=== PATIENT | male | born 1940 | race Hispanic/Latino ===

== ENCOUNTER 2017-12-12 14:36 | Emergency (ER) | payer MEDICARE ==
[2017-12-12] MEDS ORDERED: Sodium Chloride 0.9% 1,000 ML IV ONE (15:23)
--- NOTE | 2017-12-12 15:35 | C.PDOC ---
History Of Present Illness 77 y/o male brought to ED by EMS for evaluation of fever since last night and weakness since today. As per at bedside patient became weak and fell on side walk. states she gave patient Tylenol for fever with improvement and checked blood pressure which was low. Patient admits to decreased appetite and denies cough, nausea, vomiting, leg swelling, loc, head injury or any complaints at this time. Time Seen by Provider: 12/12/17 14:44 Chief Complaint (Nursing): Weakness/Neurological Deficit History Per: Patient History/Exam Limitations: no limitations Onset/Duration Of Symptoms: Days Current Symptoms Are (Timing): Still Present Past Medical History Reviewed: Historical Data, Nursing Documentation, Vital Signs Vital Signs: Last Vital Signs Temp 97.4 F L 12/12/17 14:51 Pulse 99 H 12/12/17 16:47 Resp 19 12/12/17 16:47 BP 90/53 L 12/12/17 16:47 Pulse Ox 95 12/12/17 18:20 - Medical History PMH: No Chronic Diseases Surgical History: No Surg Hx Family History: States: No Known Family Hx - Social History Hx Alcohol Use: No Hx Substance Use: No - Immunization History Hx Tetanus Toxoid Vaccination: No Hx Influenza Vaccination: No Hx Pneumococcal Vaccination: No Review Of Systems Constitutional: Positive for: Fever, Weakness. Negative for: Chills Cardiovascular: Negative for: Chest Pain Respiratory: Negative for: Cough, Shortness of Breath Gastrointestinal: Negative for: Nausea, Vomiting Skin: Positive for: Bruising. Negative for: Rash Physical Exam - Physical Exam Appears: Non-toxic, No Acute Distress, Chronically Ill, Other (thin appearing) Skin: Warm, Dry, No Rash, Ecchymosis (to left knee), Other (abrasion to bilateral knees) Head: Atraumatic, Normacephalic Eye(s): bilateral: Normal Inspection Nose: Normal Oral Mucosa: Dry Neck: Normal ROM, Supple Chest: Symmetrical, No Tenderness Cardiovascular: Rhythm Regular, No Friction Rub, No Murmur Respiratory: Normal Breath Sounds, No Rales, No Rhonchi, No Wheezing Gastrointestinal/Abdominal: Bowel Sounds (active), Soft, No Tenderness, No Guarding, No Rebound Back: Normal Inspection, No CVA Tenderness Extremity: Normal ROM, No Pedal Edema, Capillary Refill (<2 seconds) Neurological/Psych: Oriented x3, Normal Speech, Normal Cognition, Cerebellar Signs, Normal Motor, Normal Sensation ED Course And Treatment - Laboratory Results Result Diagrams: 12/12/17 15:39 12/12/17 15:39 O2 Sat by Pulse Oximetry: 95 (RA) Pulse Ox Interpretation: Normal Against Medical Advice - AMA Patient Left Against Medical Advice: The patient declines admission to the hospital and wishes to leave the Emergency Department. This action is against my medical advice. This decision was made with informed refusal. The patient was told that admission to the hospital is necessary. Explanation of the reasons why were discussed. The risks of leaving were explained to the patient and include, but are not limited to, worsening of known or currently unknown conditions, permanent disability and from undiagnosed or untreated conditions. The patient has the capacity to make this informed decision and understands my explanation of the current medical problem and risks of leaving. The patient voluntarily accepts these risks and signed an AMA form documenting our conversation. The patient was given the opportunity to ask questions and reconsider. The patient was encouraged to return to the Emergency Department at any time for further care. Medical Decision Making Medical Decision Making: Multiple conversations with patient and , patient has elevated WBC count and Bands. Patient informed has UTI and Sepsis which can be fatal and refused admission. who is at bedside agrees and understands risk. Patient given dose of Zosyn , instructed to stay and refused 3rd time. Patient is AAOx3 with steady gait, abdomen soft and non tender. Disposition - Disposition Disposition: AGAINST MEDICAL ADVICE Disposition Time: 18:31 Condition: STABLE Instructions: Urinary Tract Infections in Adults, Sepsis, Adult (DC) Forms: [employer] ([place]) - POA Present On Arrival: None - Clinical Impression Clinical Impression: Sepsis, UTI (urinary tract infection), Leukocytosis, Anemia - PA / [employer] / Resident Statement MD/DO has reviewed & agrees with the documentation as recorded. - Scribe Statement The provider has reviewed the documentation as recorded by the Patti Sahni All medical record entries made by the Patti were at my direction and personally dictated by me. I have reviewed the chart and agree that the record accurately reflects my personal performance of the history, physical exam, medical decision making, and the department course for this patient. I have also personally directed, reviewed, and agree with the discharge instructions and disposition.
[2017-12-12 15:47] LABS: VENOUS BLOOD GAS BASE EXCESS -2.2 mmol/L (0.0-2.0); VENOUS BLOOD GAS PCO2 41 mmHg (40-60); VENOUS BLOOD GAS PO2 30 mm/Hg (30-55); VENOUS BLOOD PH 7.36 (7.32-7.43)
[2017-12-12 15:49] LABS: BASO # 0.1 K/uL (0.0-0.2); BASO % 0.3 % (0.0-2.0); HEMOGLOBIN 8.8 g/dL (12.0-18.0); LYMPH # 0.6 K/uL (1.0-4.3); LYMPH % 1.1 % (20.0-40.0); MEAN CELL VOLUME 86.9 fL (80.0-94.0); MEAN CORPUSCULAR HEMOGLOBIN 28.2 pg (27.0-31.0); MEAN CORPUSCULAR HGB CONC 32.4 g/dL (33.0-37.0); MEAN PLATELET VOLUME 8.3 fL (7.2-11.7); MONO # 2.1 K/uL (0.0-0.8); MONO % 3.7 % (0.0-10.0); NEUT # 52.3 K/uL (1.8-7.0); NEUT % 94.9 % (50.0-75.0); PLATELET COUNT 280 K/uL (130-400); RBC 3.13 Mil/uL (4.40-5.90)
[2017-12-12 15:57] LABS: INR 1.5; PROTHROMBIN TIME 16.5 SECONDS (9.7-12.2)
[2017-12-12 15:59] LABS: WHITE BLOOD COUNT 55.1 K/uL (4.8-10.8)
[2017-12-12 16:08] LABS: ALB/GLOB RATIO 1.1 (1.0-2.1)
[2017-12-12 16:54] LABS: URINE BACTERIA MANY (<OCC); URINE BILIRUBIN NEGATIVE (NEGATIVE); URINE BLOOD 3+ (NEGATIVE); URINE CLARITY Turbid (Clear); URINE COLOR YELLOW (YELLOW); URINE GLUCOSE (UA) NORMAL (Normal); URINE LEUKOCYTE ESTERASE 3+ Leu/uL (Negative); URINE PROTEIN 2+ mg/dL (NEGATIVE); URINE UROBILINOGEN NORMAL mg/dL (0.2-1.0); WBC CLUMPS MANY /hpf
[2017-12-12 17:10] LABS: BANDS 26 % (0-2); LYMPHOCYTE 3 % (20-40); METAMYELOCYTE 7 % (0-0); MONOCYTE 2 % (0-10); MYELOCYTE 5 % (0-0); NEUTROPHIL 57 % (50-75); TOTAL CELLS COUNTED 100
[2017-12-12 17:11] LABS: ANISOCYTOSIS SLIGHT; PLATELET ESTIMATE NORMAL (NORMAL); POIKILOCYTOSIS SLIGHT
[2017-12-12] MEDS ORDERED: Piperacillin/Tazobact 3.375 gm 100 ML IV STA (17:59)
[2017-12-12] MEDS ORDERED: Piperacillin/Tazobact 3.375 gm 100 ML IVPB ONE (18:46)
[2017-12-12 20:23] VITALS: BP 100/60; PULSE 94; RESP 17; TEMP 98; O2SAT 98
--- NOTE | 2017-12-14 22:54 | CARD ---
APPROVED REPORT Date of service: 12/12/2017 EKG Measurement Heart [id number] <Conclusion> Normal sinus rhythm Rightward axis Prolonged QT Abnormal ECG
== END 2017-12-12 20:22 | disposition left against medical advice (07) ==
LOC: C.ER 14:36
DX: N39.0 Urinary tract infection, site not specified (principal); A41.9 Sepsis, unspecified organism; D72.829 Elevated white blood cell count, unspecified; D64.9 Anemia, unspecified
CPT/HCPCS: 36415; 80053; 81001; 82803; 82948; 83735; 84100; 85025; 85610; 85730; 87040; 87086; 87181; 87205; 93005; 96374; 99285; G0328; J2543; J7030